=== PATIENT | male | born 1955 | race Caucasian/White ===

== ENCOUNTER 2017-06-14 13:24 | Emergency (ER) | payer MEDICARE ==
[~2017-06-14 13:24] MED LIST: ASPI325T PO; CORTIS10A LEFT EAR; FENO1TAB76 PO; HYDR-3113 PO; LISI2.5T3 PO
[2017-06-14 13:25] VITALS: BP 127/76; PULSE 88; RESP 18; TEMP 98.4; O2SAT 95
[2017-06-14 14:19] LABS: AUTOMATED NEUTROPHIL # 9.2 TH/MM3 (1.8-7.7); BASOPHIL % 0.3 % (0.0-2.0); EOSINOPHIL # 0.2 TH/MM3 (0-0.4); EOSINOPHIL % 1.4 % (0.0-4.0); HEMATOCRIT 40.5 % (39.0-51.0); HEMOGLOBIN 15.1 GM/DL (13.0-17.0); LYMPH % 16.8 % (9.0-44.0); LYMPHOCYTE # 2.2 TH/MM3 (1.0-4.8); MEAN CELL VOLUME 95.2 FL (80.0-100.0); MEAN CORPUSCULAR HEMOGLOBIN 35.5 PG (27.0-34.0); MEAN PLATELET VOLUME 7.4 FL (7.0-11.0); MONO % 9.5 % (0.0-8.0); MONOCYTE # 1.2 TH/MM3 (0-0.9); PLATELET COUNT 308 TH/MM3 (150-450); RED BLOOD COUNT 4.26 MIL/MM3 (4.50-5.90); RED CELL DISTRIBUTION WIDTH 12.6 % (11.6-17.2); WHITE BLOOD COUNT 12.8 TH/MM3 (4.0-11.0)
[2017-06-14 14:20] LABS: MEAN CORPUSCULAR HGB CONC 37.3 % (32.0-36.0)
[2017-06-14] MEDS ORDERED: ASPI-516 CHEW (14:26)
[2017-06-14] MEDS ORDERED: HYDR-3583 PO (14:26)
[2017-06-14] MEDS ORDERED: LISI-515 PO (14:26)
[2017-06-14] MEDS ORDERED: SIMV5TAB3 PO (14:26)
[2017-06-14] MEDS ORDERED: MULTTAB67 PO (14:27)
[2017-06-14 14:34] LABS: ALT (GPT) 32 U/L (12-78)
[2017-06-14 14:36] LABS: ALBUMIN 3.2 GM/DL (3.4-5.0); ALKALINE PHOSPHATASE 72 U/L (45-117); AST (GOT) 37 U/L (15-37); BICARBONATE 26.8 MEQ/L (21.0-32.0); BLOOD UREA NITROGEN 17 MG/DL (7-18); CALCIUM 8.6 MG/DL (8.5-10.1); CHLORIDE 101 MEQ/L (98-107); CREATININE 1.27 MG/DL (0.60-1.30); GLOMERULAR FILTRATION RATE 58 ML/MIN (>89); GLUCOSE,RANDOM 177 MG/DL (74-106); SODIUM (NA) 138 MEQ/L (136-145); TOTAL BILIRUBIN ADULT 0.9 MG/DL (0.2-1.0); TOTAL PROTEIN 8.2 GM/DL (6.4-8.2)
--- NOTE | 2017-06-14 14:55 | PD ---
HPI Chief Complaint: GI Complaint Time Seen by Provider: 14:46 Travel History International Travel<30 days: No Contact w/Intl Traveler<30days: No Traveled to known affect area: No History of Present Illness HPI 61-year-old male with history of hypertension, hypercholesterolemia, presents to the emergency department for evaluation of diarrhea 30 days. Patient states that he has been eating at the [employer] every night and believes he may have given him something bad. He has also had mild nausea and vomiting. He has mild left lower abdominal pain that is intermittent, dull, aching. He denies fever or chills. He denies any chest or tightness. Denies any acute severe hematemesis. Denies any urinary symptoms. He has no other symptoms to report. PFSH Past Medical History High Cholesterol: Yes Diminished Hearing: No Hypertension: Yes Tetanus Vaccination: Unknown Influenza Vaccination: No Past Surgical History Appendectomy: Yes Neurologic Surgery: Yes (BRAIN TUMOR) Tonsillectomy: Yes Social History Alcohol Use: No Tobacco Use: No Substance Use: No Allergies-Medications (Allergen,Severity, Reaction): Coded Allergies: iodine (Unverified Allergy, Intermediate, HIVES, 02/07/17) potassium iodide (Unverified Allergy, Intermediate, HIVES, 02/07/17) povidone-iodine (Unverified Allergy, Intermediate, HIVES, 02/07/17) sodium iodide (Unverified Allergy, Intermediate, HIVES, 02/07/17) sodium iodide (Unverified Allergy, Intermediate, HIVES, 02/07/17) Reported Meds & Prescriptions Reported Meds & Active Scripts Active Reported Multiple Vitamin 1 Tab 1 Tab PO DAILY Simvastatin Unknown Strength Tab Unknown Dose PO DAILY Lisinopril 20 Mg Tab 25 Mg PO DAILY Hydrocodone-Acetaminophen 10-325 mg Tab 1 Tab PO Q4H PRN Aspirin 81 Mg Chew 81 Mg CHEW DAILY Review of Systems Except as stated in HPI: all other systems reviewed are Neg Physical Exam Narrative GENERAL: Obese male patient, lying in bed in no acute distress. SKIN: Focused skin assessment warm/dry. HEAD: Atraumatic. Normocephalic. EYES: Pupils equal and round. No scleral icterus. No injection or drainage. ENT: No nasal bleeding or discharge. Mucous membranes pink and moist. NECK: Trachea midline. No JVD. CARDIOVASCULAR: Regular rate and rhythm. No murmur appreciated. RESPIRATORY: No accessory muscle use. Clear to auscultation. Breath sounds equal bilaterally. GASTROINTESTINAL: Abdomen tender, soft, nondistended. Left lower quadrant tenderness to deep palpation no rebound tenderness. No guarding.. Hepatic and splenic margins not palpable. MUSCULOSKELETAL: No obvious deformities. No clubbing. No cyanosis. No edema. NEUROLOGICAL: Awake and alert. No obvious cranial nerve deficits. Motor grossly within normal limits. Normal speech. PSYCHIATRIC: Appropriate mood and affect; insight and judgment normal. Data Data Last Documented VS Vital Signs Date Time Temp Pulse Resp B/P (MAP) Pulse Ox O2 Delivery O2 Flow Rate FiO2 06/14/17 14:29 16 06/14/17 13:25 98.4 88 127/76 (93) 95 Orders Orders Complete Blood Count With Diff (06/14/17 13:33) Comprehensive Metabolic Panel (06/14/17 13:33) Abdomen, Kub Only (06/14/17 ) Ct Abd/Pel W/O Iv Contrast (06/14/17 ) Prochlorperazine Inj (Compazine Inj) (06/14/17 16:00) Diphenhydramine Inj (Benadryl Inj) (06/14/17 16:00) Labs Laboratory Tests Test 06/14/17 14:04 White Blood Count 12.8 TH/MM3 Red Blood Count 4.26 MIL/MM3 Hemoglobin 15.1 GM/DL Hematocrit 40.5 % Mean Corpuscular Volume 95.2 FL Mean Corpuscular Hemoglobin 35.5 PG Mean Corpuscular Hemoglobin Concent 37.3 % Red Cell Distribution Width 12.6 % Platelet Count 308 TH/MM3 Mean Platelet Volume 7.4 FL Neutrophils (%) (Auto) 72.0 % Lymphocytes (%) (Auto) 16.8 % Monocytes (%) (Auto) 9.5 % Eosinophils (%) (Auto) 1.4 % Basophils (%) (Auto) 0.3 % Neutrophils # (Auto) 9.2 TH/MM3 Lymphocytes # (Auto) 2.2 TH/MM3 Monocytes # (Auto) 1.2 TH/MM3 Eosinophils # (Auto) 0.2 TH/MM3 Basophils # (Auto) 0.0 TH/MM3 CBC Comment AUTO DIFF Differential Comment AUTO DIFF CONFIRMED Platelet Estimate NORMAL Platelet Morphology Comment NORMAL Blood Urea Nitrogen 17 MG/DL Creatinine 1.27 MG/DL Random Glucose 177 MG/DL Total Protein 8.2 GM/DL Albumin 3.2 GM/DL Calcium Level 8.6 MG/DL Alkaline Phosphatase 72 U/L Aspartate Amino Transf (AST/SGOT) 37 U/L Alanine Aminotransferase (ALT/SGPT) 32 U/L Total Bilirubin 0.9 MG/DL Sodium Level 138 MEQ/L Potassium Level 3.7 MEQ/L Chloride Level 101 MEQ/L Carbon Dioxide Level 26.8 MEQ/L Anion Gap 10 MEQ/L Estimat Glomerular Filtration Rate 58 ML/MIN MDM Medical Decision Making Medical Screen Exam Complete: Yes Emergency Medical Condition: Yes Medical Record Reviewed: Yes Differential Diagnosis Gastroenteritis versus diverticulitis versus cholecystitis versus obstruction Narrative Course Last Impressions Abdomen X-Ray 06/14/17 0000 Signed Impressions: Service Date/Time: Wednesday, June 14, 2017 13:50 - CONCLUSION: Negative exam. No obstruction or pneumoperitoneum. Kapil Dave MD 61-year-old male presents versus department for evaluation of diarrhea 30 days with associated nausea and vomiting. Patient has mild left lower quadrant tenderness to palpation. Lab work is without acute concern. There is a mild leukocytosis, due to patient vomiting. CMP is without acute concern. Patient is treated for nausea and vomiting here. CT exam is done without contrast due to patient's iodine allergy. Laboratory Tests Test 06/14/17 14:04 White Blood Count 12.8 TH/MM3 Red Blood Count 4.26 MIL/MM3 Hemoglobin 15.1 GM/DL Hematocrit 40.5 % Mean Corpuscular Volume 95.2 FL Mean Corpuscular Hemoglobin 35.5 PG Mean Corpuscular Hemoglobin Concent 37.3 % Red Cell Distribution Width 12.6 % Platelet Count 308 TH/MM3 Mean Platelet Volume 7.4 FL Neutrophils (%) (Auto) 72.0 % Lymphocytes (%) (Auto) 16.8 % Monocytes (%) (Auto) 9.5 % Eosinophils (%) (Auto) 1.4 % Basophils (%) (Auto) 0.3 % Neutrophils # (Auto) 9.2 TH/MM3 Lymphocytes # (Auto) 2.2 TH/MM3 Monocytes # (Auto) 1.2 TH/MM3 Eosinophils # (Auto) 0.2 TH/MM3 Basophils # (Auto) 0.0 TH/MM3 CBC Comment AUTO DIFF Differential Comment AUTO DIFF CONFIRMED Platelet Estimate NORMAL Platelet Morphology Comment NORMAL Blood Urea Nitrogen 17 MG/DL Creatinine 1.27 MG/DL Random Glucose 177 MG/DL Total Protein 8.2 GM/DL Albumin 3.2 GM/DL Calcium Level 8.6 MG/DL Alkaline Phosphatase 72 U/L Aspartate Amino Transf (AST/SGOT) 37 U/L Alanine Aminotransferase (ALT/SGPT) 32 U/L Total Bilirubin 0.9 MG/DL Sodium Level 138 MEQ/L Potassium Level 3.7 MEQ/L Chloride Level 101 MEQ/L Carbon Dioxide Level 26.8 MEQ/L Anion Gap 10 MEQ/L Estimat Glomerular Filtration Rate 58 ML/MIN Last Impressions Abdomen X-Ray 06/14/17 0000 Signed Impressions: Service Date/Time: Wednesday, June 14, 2017 13:50 - CONCLUSION: Negative exam. No obstruction or pneumoperitoneum. Kapil Dave MD CT imaging shows CONCLUSION: 1. Punctate calcified calyceal calculus in the inferior pole of the left kidney. No obstructive uropathy. 2. Otherwise, no acute CT abnormality to explain patient's abdominal pain. 3. Diffusely decreased hepatic attenuation consistent with hepatic steatosis. 4. Sigmoid diverticulosis. Results are discussed with the patient. He'll be discharged home with nausea medication. Encouraged to seek GI evaluation and colonoscopy is recommended. He agrees to return immediately with any acute worsening symptoms. Diagnosis Primary Impression: Gastroenteritis Referrals: [facility] Primary Care Physician Patient Instructions: Gastroenteritis (ED), General Instructions Additional Instructions: Maintain adequate oral hydration [place] diet is recommended Follow-up with GI. Outpatient colonoscopy is recommended Return immediately to emergency department with any acute worsening symptoms Med/Other Pt SpecificInfo: Prescription(s) given Scripts Ondansetron Odt (Zofran Odt) 4 Mg Tab 4 MG SL Q6HR Y for Nausea/Vomiting, #10 TAB 0 Refills Prov: Mandie Infante 06/14/17 Dicyclomine (Bentyl) 10 Mg Cap 10 MG PO TID Y for Bowel Management, #20 CAP 0 Refills Prov: Mandie Infante 06/14/17 Disposition: 01 DISCHARGE HOME Condition: Stable Mandie Infante Jun 14, 2017 14:55
--- NOTE | 2017-06-14 15:11 | RADRPT ---
EXAM DATE/TIME: 06/14/2017 13:50 [facility] COMPARISON: No previous studies available for comparison. INDICATIONS : Diahrrhea for two weeks. Left lower quadrant pain. MEDICAL HISTORY : Hypertension. Diabetes mellitus type II. SURGICAL HISTORY : Lumbar fusion ENCOUNTER: Initial ACUITY: 2 weeks PAIN SCORE: 5/10 LOCATION: Left lower quadrant FINDINGS: Supine view of the abdomen was performed. The abdominal bowel gas pattern is normal. No abnormal ma sses, calcifications, or organomegaly is seen. The osseous structures are unremarkable. CONCLUSION: Negative exam. No obstruction or pneumoperitoneum. Kapil Dave MD on June 14, 2017 at 15:09 Board Certified Radiologist. This report was verified electronically.
[2017-06-14] MEDS ORDERED: PROCHLORPERAZINE INJ 10 MG/2 ML VIAL IV PUSH ONE (16:00)
[2017-06-14] MEDS ORDERED: diphenhydrAMINE HCL 50 MG/ML VIAL IV PUSH ONE (16:00)
--- NOTE | 2017-06-14 16:29 | RADRPT ---
EXAM DATE/TIME: 06/14/2017 15:26 [facility] COMPARISON: No previous studies available for comparison. INDICATIONS : Diffuse abdomen pain with diarrhea for one week. ORAL CONTRAST: No oral contrast ingested. RADIATION DOSE: 29.49 CTDIvol (mGy) ; Patient body habitus MEDICAL HISTORY : Hypertension. Brain tumor. SURGICAL HISTORY : Appendectomy. Brain tumor sx. ENCOUNTER: Initial ACUITY: 1 week PAIN SCALE: 3/10 LOCATION: Bilateral lower quadrant TECHNIQUE: Volumetric scanning of the abdomen and pelvis was performed. Using automated exposure control and ad justment of the mA and/or kV according to patient size, radiation dose was kept as low as reasonably achievable to obtain optimal diagnostic quality images. DICOM format image data is available electro nically for review and comparison. FINDINGS: LOWER LUNGS: The visualized lower lungs are clear. LIVER: Diffusely decreased hepatic density consistent with diffuse hepatic steatosis. Gallbladder is unremar kable by CT. SPLEEN: Normal size without lesion. PANCREAS: Within normal limits. KIDNEYS: Punctate or calyceal calculus in the inferior pole of the left kidney. Kidneys are otherwise symmetri shubham in appearance without evidence for hydronephrosis or contour deforming abnormality. ADRENAL GLANDS: Within normal limits. VASCULAR: There is no aortic aneurysm. BOWEL/MESENTERY: Mild/moderate sigmoid diverticulosis without significant inflammatory stranding. Bowel otherwise appe ars unremarkable without evidence for obstruction. No significant free fluid or free air. ABDOMINAL WALL: Within normal limits. RETROPERITONEUM: There is no lymphadenopathy. BLADDER: Decompressed without focal abnormality. REPRODUCTIVE: Within normal limits. INGUINAL: There is no lymphadenopathy or hernia. MUSCULOSKELETAL: Degenerative spondylosis of the lumbar spine. CONCLUSION: 1. Punctate calcified calyceal calculus in the inferior pole of the left kidney. No obstructive uropa thy. 2. Otherwise, no acute CT abnormality to explain patient's abdominal pain. 3. Diffusely decreased hepatic attenuation consistent with hepatic steatosis. 4. Sigmoid diverticulosis. Chris Torres MD on June 14, 2017 at 16:10 Board Certified Radiologist. This report was verified electronically.
[2017-06-14] MEDS ORDERED: ZOFR4TAB3 SL (16:43)
[2017-06-14] MEDS ORDERED: DICY10 PO (16:43)
== END 2017-06-14 18:40 | disposition home or self-care (01) ==
LOC: NEPD 13:24
DX: K52.9 Noninfective gastroenteritis and colitis, unspecified (principal); N20.0 Calculus of kidney; K57.30 Diverticulosis of large intestine without perforation or abscess without bleeding; D72.829 Elevated white blood cell count, unspecified; I10 Essential (primary) hypertension; E78.00 Pure hypercholesterolemia, unspecified; Z79.82 Long term (current) use of aspirin; Z79.899 Other long term (current) drug therapy; Z88.8 Allergy status to other drugs, medicaments and biological substances
CPT/HCPCS: 74000; 74176; 80053; 85025; 96374; 96375; 99285; J0780; J1200